=== PATIENT | female | born 1995 | race Caucasian/White ===

== ENCOUNTER 2017-07-03 16:03 | Emergency (ER) | payer OTHER ==
[~2017-07-03] VITALS: Ht 167.6 cm; Wt 95.0 kg
[2017-07-03 16:10] VITALS: BP 140/89; PULSE 112; RESP 16; TEMP 99.1
[2017-07-03] MEDS ORDERED: SODIUM CHLOR 0.9% 1000 ML INJ 1,000 ML IV ONE (16:57)
--- NOTE | 2017-07-03 17:00 | PD ---
HPI Chief Complaint: Respiratory Symptoms Time Seen by Provider: 17:02 Travel History International Travel<30 days: No Contact w/Intl Traveler<30days: No Traveled to known affect area: No History of Present Illness HPI This is a 21-year-old female who reports that she was diagnosed with chronic respiratory failure after a complication in which she aspirated during surgery in 2014. She reports that she has undergone numerous testing with no known etiology but she is on 2 L of home oxygen at all times. She presents with 4 days of dizziness, lightheadedness with exertion he reports that whenever she stands or walks she feels lightheaded, increased shortness of breath, substernal chest tightness. Symptoms have persisted which prompted evaluation. She reports that she had similar instances of these symptoms a few times in the past with no known etiology. She denies any cough, congestion but she has had a sore throat. Denies fevers, chills, abdominal pain, recent surgery. She reports that she did travel here from [place] in April of this year for school. Her last true period was 4 months ago, she reports that she is on contraceptives and has very irregular periods. No other complaints. [facility] Past Medical History Respiratory: Yes (CHRONIC RESP FAILURE) ?: Not LMP: 03/03/17 Past Surgical History Oral Surgery: Yes (wisdom teeth removed ) Tonsillectomy: Yes Social History Alcohol Use: No Tobacco Use: No Substance Use: No Allergies-Medications (Allergen,Severity, Reaction): Coded Allergies: fluticasone (Verified Allergy, Severe, Anaphylaxis, 07/03/17) salmeterol (Verified Allergy, Severe, Anaphylaxis, 07/03/17) guaifenesin (Verified Allergy, Intermediate, RASH, 07/03/17) lidocaine (Verified Allergy, Unknown, 07/03/17) procaine (Verified Allergy, Unknown, 07/03/17) Uncoded Allergies: SHELLFISH (Allergy, Intermediate, RASH, 07/03/17) Review of Systems Except as stated in HPI: all other systems reviewed are Neg Physical Exam Narrative GENERAL: Well-developed well-nourished female in no acute distress. Her oxygen saturation is 97% while conversing on 2 L of oxygen. She is not tachypneic. SKIN: Warm and dry. HEAD: Atraumatic. Normocephalic. EYES: Pupils equal and round. No scleral icterus. No injection or drainage. ENT: No nasal bleeding or discharge. Mucous membranes pink and moist. Mild oropharyngeal erythema without exudate. NECK: Trachea midline. No JVD. CARDIOVASCULAR: Regular rate and rhythm. No murmur appreciated. RESPIRATORY: No accessory muscle use. Clear to auscultation. Breath sounds equal bilaterally. No crackles no wheezing or rhonchi GASTROINTESTINAL: Abdomen soft, non-tender, nondistended. Hepatic and splenic margins not palpable. MUSCULOSKELETAL: No obvious deformities. No clubbing. No cyanosis. No edema. NEUROLOGICAL: Awake and alert. No obvious cranial nerve deficits. Motor grossly within normal limits. Normal speech. PSYCHIATRIC: Appropriate mood and affect; insight and judgment normal. Data Data Last Documented VS Vital Signs Date Time Temp Pulse Resp B/P (MAP) Pulse Ox O2 Delivery O2 Flow Rate FiO2 07/03/17 19:05 07/03/17 17:29 100 18 07/03/17 16:51 99 Room Air 07/03/17 16:10 99.1 2.00 96 Orders Orders Complete Blood Count With Diff (07/03/17 16:57) Comprehensive Metabolic Panel (07/03/17 16:57) D-Dimer (07/03/17 16:57) Magnesium (Mg) (07/03/17 16:57) Ckmb (Isoenzyme) Profile (07/03/17 16:57) Troponin I (07/03/17 16:57) Electrocardiogram (07/03/17 16:57) Chest, Single Ap (07/03/17 16:57) Ed Urine Pregnancytest Poc (07/03/17 16:57) Blood Glucose (07/03/17 16:57) Sodium Chlor 0.9% 1000 Ml Inj (Ns 1000 M (07/03/17 16:57) Orthostatic Vital Signs (07/03/17 16:57) Group A Rapid Strep Screen (07/03/17 17:00) Strep Culture (Group A) (07/03/17 17:06) Ct Pulmonary Angiogram (07/03/17 18:13) CKMB (07/03/17 17:06) CKMB% (07/03/17 17:06) Iohexol 350 Inj (Omnipaque 350 Inj) (07/03/17 18:58) Labs Laboratory Tests Test 10/7/17 17:06 White Blood Count 11.5 TH/MM3 Red Blood Count 4.86 MIL/MM3 Hemoglobin 12.3 GM/DL Hematocrit 37.9 % Mean Corpuscular Volume 78.0 FL Mean Corpuscular Hemoglobin 25.3 PG Mean Corpuscular Hemoglobin Concent 32.5 % Red Cell Distribution Width 15.6 % Platelet Count 439 TH/MM3 Mean Platelet Volume 8.2 FL Neutrophils (%) (Auto) 60.4 % Lymphocytes (%) (Auto) 28.9 % Monocytes (%) (Auto) 8.5 % Eosinophils (%) (Auto) 1.7 % Basophils (%) (Auto) 0.5 % Neutrophils # (Auto) 6.9 TH/MM3 Lymphocytes # (Auto) 3.3 TH/MM3 Monocytes # (Auto) 1.0 TH/MM3 Eosinophils # (Auto) 0.2 TH/MM3 Basophils # (Auto) 0.1 TH/MM3 CBC Comment DIFF FINAL Differential Comment D-Dimer Quantitative (PE/DVT) 0.58 MG/L FEU Blood Urea Nitrogen 11 MG/DL Creatinine 0.73 MG/DL Random Glucose 100 MG/DL Total Protein 8.0 GM/DL Albumin 3.2 GM/DL Calcium Level 8.8 MG/DL Magnesium Level 2.0 MG/DL Alkaline Phosphatase 59 U/L Aspartate Amino Transf (AST/SGOT) 25 U/L Alanine Aminotransferase (ALT/SGPT) 28 U/L Total Bilirubin 0.2 MG/DL Sodium Level 136 MEQ/L Potassium Level 4.0 MEQ/L Chloride Level 103 MEQ/L Carbon Dioxide Level 23.9 MEQ/L Anion Gap 9 MEQ/L Estimat Glomerular Filtration Rate 101 ML/MIN Total Creatine Kinase 197 U/L Creatine Kinase MB 3.9 NG/ML Creatine Kinase MB % 2.0 % Troponin I LESS THAN 0.02 NG/ML [facility] Medical Decision Making Medical Screen Exam Complete: Yes Emergency Medical Condition: Yes Medical Record Reviewed: Yes Differential Diagnosis Chronic respiratory failure, orthostatic hypotension, symptomatic anemia, electrolyte abnormality, pulmonary embolism Narrative Course The patient was placed on ECG monitoring pulse oximetry. Twelve-lead EKG was obtained. The patient was given IV fluid bolus. Basic lab work, chest x-ray been ordered. The patient's laboratory is notable for mildly elevated d-dimer and therefore CT pulmonary angiogram has been ordered. Chest x-ray reveals no acute abnormalities. CBC reveals WBC count 11.5. CMP is unremarkable. Total CK is 197. CT pulmonary injury and is negative. The patient was seen ambulatory to the bathroom during her hospital stay with no apparent discomfort. I have discussed with my attending who agrees with plan of care. At this point in time the plan is to discharge the patient for outpatient follow-up. Diagnosis Primary Impression: Lightheadedness Additional Instructions: Stay well-hydrated and well-nourished. Follow-up closely with primary care physician. Return for any emergent medical conditions. Med/Other Pt SpecificInfo: No Change to Meds Disposition: 01 DISCHARGE HOME Condition: Stable Delvin Martinez Jul 03, 2017 17:00
--- NOTE | 2017-07-03 17:12 | RADRPT ---
EXAM DATE/TIME: 07/03/2017 16:55 [facility] COMPARISON: No previous studies available for comparison. INDICATIONS : Short of breath. MEDICAL HISTORY : None. SURGICAL HISTORY : None. ENCOUNTER: Initial ACUITY: 1 day PAIN SCORE: 7/10 LOCATION: Bilateral chest FINDINGS: A single view of the chest demonstrates the lungs to be symmetrically aerated without evidence of mas s, infiltrate or effusion. The cardiomediastinal contours are unremarkable. Osseous structures are intact. CONCLUSION: No acute disease. Yo Rushing MD on July 03, 2017 at 17:10 Board Certified Radiologist. This report was verified electronically.
[2017-07-03 17:27] VITALS: BP_SYST 144; BP_SYST 161; BP_DIAS 85; BP_DIAS 97; RESP 18
[2017-07-03 17:29] VITALS: BP 159/91; RESP 18
[2017-07-03 17:34] LABS: AUTOMATED NEUTROPHIL # 6.9 TH/MM3 (1.8-7.7); BASOPHIL # 0.1 TH/MM3 (0-0.2); BASOPHIL % 0.5 % (0.0-2.0); EOSINOPHIL # 0.2 TH/MM3 (0-0.4); EOSINOPHIL % 1.7 % (0.0-4.0); HEMATOCRIT 37.9 % (35.0-46.0); HEMO FLAGS DIFF FINAL; LYMPH % 28.9 % (9.0-44.0); LYMPHOCYTE # 3.3 TH/MM3 (1.0-4.8); MEAN CORPUSCULAR HEMOGLOBIN 25.3 PG (27.0-34.0); MEAN CORPUSCULAR HGB CONC 32.5 % (32.0-36.0); MONO % 8.5 % (0.0-8.0); NEUT % 60.4 % (16.0-70.0); PLATELET COUNT 439 TH/MM3 (150-450); RED BLOOD COUNT 4.86 MIL/MM3 (4.00-5.30); RED CELL DISTRIBUTION WIDTH 15.6 % (11.6-17.2); WHITE BLOOD COUNT 11.5 TH/MM3 (4.0-11.0)
[2017-07-03 18:14] LABS: ANION GAP 9 MEQ/L (5-15); AST (GOT) 25 U/L (15-37); BICARBONATE 23.9 MEQ/L (21.0-32.0); BLOOD UREA NITROGEN 11 MG/DL (7-18); CHLORIDE 103 MEQ/L (98-107); GLOMERULAR FILTRATION RATE 101 ML/MIN (>89); SODIUM (NA) 136 MEQ/L (136-145)
[2017-07-03 18:29] LABS: ALKALINE PHOSPHATASE 59 U/L (45-117); ALT (GPT) 28 U/L (10-53); CREATINE KINASE 197 U/L (26-192); TOTAL BILIRUBIN ADULT 0.2 MG/DL (0.2-1.0)
[2017-07-03 18:42] LABS: CKMB 3.9 NG/ML (0.5-3.6)
[2017-07-03] MEDS ORDERED: IOHEXOL 350 MG/ML 10 ML VIAL (for RAD DIAG) IVCONTRAST ONE (18:58)
--- NOTE | 2017-07-03 19:03 | RADRPT ---
EXAM DATE/TIME: 07/03/2017 18:39 [facility] COMPARISON: CHEST SINGLE AP, July 03, 2017, 16:55. INDICATIONS : Shortness of breath. IV CONTRAST: 75 cc Omnipaque 350 (iohexol) IV RADIATION DOSE: 15.48 CTDIvol (mGy) MEDICAL HISTORY : Chronic respiratory failure. SURGICAL HISTORY : None. ENCOUNTER: Initial ACUITY: 1 day PAIN SCALE: 0/10 LOCATION: chest TECHNIQUE: Volumetric scanning of the chest was performed using a pulmonary embolism protocol MIP images were re constructed. Using automated exposure control and adjustment of the mA and/or kV according to patien t size, radiation dose was kept as low as reasonably achievable to obtain optimal diagnostic quality images. DICOM format image data is available electronically for review and comparison. Follow-up recommendations for detected pulmonary nodules are based at a minimum on nodule size and pa tient risk factors according to Fleischner Society Guidelines. FINDINGS: PULMONARY ARTERIES: No filling defects are seen in the pulmonary arteries through the segmental level. LUNGS: There is no consolidation or pneumothorax . No concerning pulmonary nodule is visualized. PLEURAE: There is no pleural thickening or pleural effusion. MEDIASTINUM: There is good visualization of the great vessels of the middle mediastinum. No evidence of mediastin al or hilar adenopathy/mass. MUSCULOSKELETAL: Within normal limits for patient age. MISCELLANEOUS: The visualized upper abdominal organs demonstrate no acute abnormality. CONCLUSION: Normal examination. Yo Rushing MD on July 03, 2017 at 19:01 Board Certified Radiologist. This report was verified electronically.
--- NOTE | 2017-07-04 05:57 | EKG ---
Date Performed: 07/03/2017 Time Performed: 17:38:11 PTAGE: 21 years EKG: Sinus rhythm NONSPECIFIC T-WAVE ABNORMALITY BORDERLINE ECG INTERPRETATION BASED ON A DEFAULT AGE OF 40 YEARS NO PREVIOUS TRACING DOCTOR: Zeferino Small Interpretating Date/Time 07/04/2017 05:54:45
== END 2017-07-03 19:57 | disposition home or self-care (01) ==
LOC: NEPE 16:03
DX: R42 Dizziness and giddiness (principal); R06.02 Shortness of breath; R94.31 Abnormal electrocardiogram [ECG] [EKG]
CPT/HCPCS: 71010; 71275; 80053; 82550; 82552; 83735; 84484; 84703; 85025; 85379; 87081; 87880; 93005; 96360; 96361; 99285; J7030; Q9967